=== PATIENT | male | born 1990 | race Two or more races ===

== ENCOUNTER 2017-05-18 15:48 | Emergency (ER) | payer SELFPAY ==
[~2017-05-18] VITALS: Ht 162.6 cm; Wt 90.7 kg
--- NOTE | ~2017-05-18 | US115 ---
[facility] RADIOLOGY TEXT RESULTS PATIENT: RAJI BURKETT LOCATION: SED : 86 UNIT #: [id number] AGE: [address]: Geovanna Saab SEX: M ORDER DR: [id number] [address] [address] [id number] E MR#: [id number] Acc #: [id number] NAME: RAJI BURKETT : 1990 SEX: M STUDY DATE/TIME: 05/18/2017 16:50 UNIT: SED ROOM: STUDY DESCRIPTION: US Scrotum and Contents Attending Physician: Geovanna Saab Pa-C Ordering Physician: Physician Non-Staff MEDICAL IMAGING REPORT This report is preliminary unless electronic signature is present. EXAM Bilateral scrotal ultrasound 05/18/2017 HISTORY Pain in testicles x1 day. FINDINGS Real-time ultrasonography of the scrotal contents performed. Grayscale, color Doppler Doppler pulse-wave interrogation utilized. The right testis measures 2.38 cm x 2.78 cm x 4.19 cm. Arterial and venous flow present in the right testis. The right epididymis is unremarkable. Trace amount of fluid in the right hemiscrotum. The left testis measures 2.30 cm x 2.82 cm x 3.95 cm. Arterial and venous flow present in the left testis. Left epididymis unremarkable. The bilateral testes are normal in contour and echotexture. No mass lesion. IMPRESSION 1. Bilateral testes normal in appearance. Arterial and venous flow present bilaterally. 2. Trace amount of fluid in the right hemiscrotum. 3. Bilateral epididymis normal in appearance. Dictated by... Lucien Wellington M.D. THIS IS AN ELECTRONICALLY VERIFIED REPORT Lucien Wellington M.D. at 05/21/2017 2:44 PM DA/[place] TD: 05/19/2017 01:47 [facility] RADIOLOGY TEXT RESULTS PATIENT: RA[id number] [birth year] UNIT #: [id number] AGE: [address]: Geovanna Saab SEX: M ORDER DR: JOB #: [id number] MEDICAL IMAGING REPORT Page 1 of 1
[2017-05-18] MEDS ORDERED: NO MEDICATIONS (16:18)
[2017-05-18 17:00] LABS: URINE SOURCE CLEAN CATCH
[2017-05-18 17:06] LABS: URINE APPEARANCE CLEAR; URINE BILIRUBIN NEG (NEG); URINE BLOOD TRACE-INTACT (NEG); URINE COLOR YELLOW; URINE GLUCOSE NEG (NORM); URINE KETONE NEG (NEG); URINE LEUKOCYTE ESTERASE NEG (NEG); URINE NITRATE NEG (NEG); URINE PROTEIN NEG (NEG); URINE SPECIFIC GRAVITY >=1.030 (1.003-1.035); URINE UROBILINOGEN 0.2 MG/DL (NORM)
[2017-05-18 17:08] LABS: MICRO INDICATED? YES
[2017-05-18 17:23] LABS: URINE BACTERIA NEG (NEG); URINE MUCUS PRESENT
== END 2017-05-18 18:26 | disposition home or self-care (01) ==
LOC: SED 15:48
PROVIDERS: Physician Assistant
DX: N45.1 Epididymitis (principal); F17.200 Nicotine dependence, unspecified, uncomplicated
CPT/HCPCS: 76870; 81003; 96372; 99284; J0696